=== PATIENT | male | born 2000 | race African-American/Black ===

== ENCOUNTER 2024-11-01 03:22 | Emergency (ER) | payer OTHER, SELFPAY ==
[2024-11-01 04:23] LABS: Bacteria/HPF None Seen HPF (None Seen); CAUTI Indications for Culture Dysuria,urgency,freq; Glucose, Urine (Dipstick) Normal (Negative); Leukocyte 25 Leu/uL (Negative); Protein, Urine (Dipstick) Negative (Neg-Trace); RBC/HPF 0-3 HPF (0-3); Specific Gravity, Urine 1.028 (1.002-1.036); WBC/HPF 21-50 HPF (0-3)
[2024-11-01 04:27] LABS: Urine Culture Reflex Yes Yes
[2024-11-01] MEDS ORDERED: cefTRIAXone (ROCEPHIN) 500 MG VIAL ONE (05:00)
[2024-11-02 05:57] LABS: Chlam.trachomatis by PCR,Urine Not Detected (NotDetected); GC N.gonorrhoeae PCR,UrineVOID Not Detected (NotDetected)
== END 2024-11-01 05:30 | disposition home or self-care (01) ==
LOC: ERS 03:22
DX: N34.2 Other urethritis (principal)
CPT/HCPCS: 81001; 87086; 87491; 87591; 96372; 99283; J0696